=== PATIENT | male | born 1965 | race Caucasian/White ===

== ENCOUNTER → 2021-01-12 | Outpatient (CLI) | payer OTHER, BC ==
[~2021-01-12] MED LIST: ASPIR-LOW81 MG PO; ATENOLOL25 MG PO; DAILY MULTIPLE1 EAC1 PO; FLAGYL500 MG PO; LEVAQUIN500 MG PO; VITAMIN C 500500 MG PO
== END ==
LOC: KOH-I 01-10 10:00
DX: S43.80XA Sprain of other specified parts of unspecified shoulder girdle, initial encounter (principal); S46.011A Strain of muscle(s) and tendon(s) of the rotator cuff of right shoulder, initial encounter; S43.51XA Sprain of right acromioclavicular joint, initial encounter; R93.7 Abnormal findings on diagnostic imaging of other parts of musculoskeletal system
CPT/HCPCS: 73221

== ENCOUNTER 2021-08-10 11:38 | Emergency (ER) | payer BC ==
[2021-08-10 13:12] LABS: HEMOGLOBIN 16.4 gm/dl (14.0-17.5); RED BLOOD COUNT 5.41 M/UL (4.20-5.50); WHITE BLOOD COUNT 8.1 K/UL (4.5-11.0)
[2021-08-10 13:32] LABS: BUN/CREATININE RATIO 15 (0-10)
[2021-08-10] MEDS ORDERED: PROTONIX40 MG PO (16:16)
== END 2021-08-10 18:36 | disposition home or self-care (01) ==
LOC: ER1 11:38
PROVIDERS: Physician Assistant
DX: T18.128A Food in esophagus causing other injury, initial encounter (principal); I45.10 Unspecified right bundle-branch block; Z20.822 Contact with and (suspected) exposure to COVID-19; Z88.2 Allergy status to sulfonamides; Z88.0 Allergy status to penicillin; Z90.89 Acquired absence of other organs
CPT/HCPCS: 71046; 80053; 82550; 82553; 83874; 84484; 85025; 93005; 96374; 99284; J1610; J2250; J3010; J7040; U0002

== ENCOUNTER 2021-09-13 16:55 | Inpatient (IN) | payer BC, OTHER ==
[~2021-09-13] VITALS: Ht 175.3 cm; Wt 73.9 kg
[~2021-09-13 16:55] MED LIST changes: +MEDROL DOSEPAK 24 MG PO; +PROTONIX40 MG PO
[2021-09-13 19:02] LABS: HEMOGLOBIN 14.1 gm/dl (14.0-17.5); RED BLOOD COUNT 4.7 M/UL (4.20-5.50)
[2021-09-13 19:20] LABS: BUN/CREATININE RATIO 23 (0-10)
--- NOTE | 2021-09-14 01:18 | NUR ---
09/14/21 0015 right knee 16 in above, 16.5 middle 15 in below, red hot swollen
[2021-09-14] MEDS ORDERED: PROTONIX 40 MG40 M1 PO (08:21)
[2021-09-14] MEDS ORDERED: DOTERRA PO (08:25)
--- NOTE | 2021-09-14 17:57 | NUR ---
PATIENT RETURNED FROM PACU. ALERT AND ORIENTED X4. BULKY SURGICAL DRESSING IN PLACE, POLAR ICE APPLIED. INCENTIVE SPIROMETER AT BEDSIDE. VITAL SIGNS WNL. CALL GUPTA IN [facility] REACH.
[2021-09-15 05:42] LABS: RED BLOOD COUNT 4.32 M/UL (4.20-5.50)
[2021-09-15 05:45] LABS: WHITE BLOOD COUNT 12.7 K/UL (4.5-11.0)
[2021-09-15 05:59] LABS: BUN/CREATININE RATIO 18 (0-10)
[2021-09-16 08:18] LABS: HEMOGLOBIN 12.1 gm/dl (14.0-17.5); RED BLOOD COUNT 4.13 M/UL (4.20-5.50)
[2021-09-16 08:30] LABS: WHITE BLOOD COUNT 9.2 K/UL (4.5-11.0)
[2021-09-16 08:59] LABS: BUN/CREATININE RATIO 15 (0-10)
[2021-09-17 06:26] LABS: HEMOGLOBIN 12.3 gm/dl (14.0-17.5); RED BLOOD COUNT 4.14 M/UL (4.20-5.50); WHITE BLOOD COUNT 9.1 K/UL (4.5-11.0)
[2021-09-17 06:42] LABS: BUN/CREATININE RATIO 15 (0-10)
[2021-09-17] MEDS ORDERED: HYDROCODON-ACE1 EAC2 PO (12:30)
[2021-09-17] MEDS ORDERED: ASPIRIN EC81 MG PO (17:09)
[2021-09-17] MEDS ORDERED: CLINDAMYCIN HC300 MG PO (17:09)
[2021-09-17] MEDS ORDERED: DOXYCYCLINE HY100 M2 PO (19:15)
== END 2021-09-17 18:47 | disposition home or self-care (01) | DRG 854 ==
LOC: ER1 16:55 → CDU 21:15 → M/S 21:15
PROVIDERS: Internal Medicine; ADMIT Internal Medicine
PROC: 0S9C4ZZ Drainage of Right Knee Joint, Percutaneous Endoscopic Approach (ICD-10-PCS; principal; 2021-09-13)
PROC: 0M9N0ZZ Drainage of Right Knee Bursa and Ligament, Open Approach (ICD-10-PCS; 2021-09-13)
PROC: 0SJC3ZZ Inspection of Right Knee Joint, Percutaneous Approach (ICD-10-PCS; 2021-09-14)
DX: A41.02 Sepsis due to Methicillin resistant Staphylococcus aureus (principal); M00.861 Arthritis due to other bacteria, right knee; M71.561 Other bursitis, not elsewhere classified, right knee; Z20.822 Contact with and (suspected) exposure to COVID-19; B95.62 Methicillin resistant Staphylococcus aureus infection as the cause of diseases classified elsewhere; K21.9 Gastro-esophageal reflux disease without esophagitis; I45.10 Unspecified right bundle-branch block; Z88.2 Allergy status to sulfonamides; Z82.49 Family history of ischemic heart disease and other diseases of the circulatory system; Z88.1 Allergy status to other antibiotic agents; Z88.0 Allergy status to penicillin; Z87.891 Personal history of nicotine dependence; Z79.82 Long term (current) use of aspirin
CPT/HCPCS: 36415; 73564; 80048; 80053; 80202; 82550; 82553; 83605; 84484; 85025; 85027; 85652; 86140; 87040; 87070; 87077; 87186; 87205; 96365; 96366; 96375; 99284; J0171; J0692; J1100; J1170; J1650; J1885; J2001; J2250; J2270; J2405; J2704; J3010; J3370; J7030; J7050; J7070; J7120; U0002